=== PATIENT | male | born 1955 | race Caucasian/White ===

== ENCOUNTER → 2017-07-04 | Outpatient (CLI) | payer OTHER | LOC: FIMAGING 07:17 | PROVIDERS: ATTEND Radiology Diagnostic Radiology | DX: L97.919 Non-pressure chronic ulcer of unspecified part of right lower leg with unspecified severity (principal); L97.929 Non-pressure chronic ulcer of unspecified part of left lower leg with unspecified severity ==

== ENCOUNTER → 2017-07-15 | Outpatient (CLI) | payer OTHER ==
[~2017-07-15] MED LIST: IOPAMIDOL (ISOVUE 370) 100 ML BTL IV ONE
== END ==
LOC: CIMAGING 09:04
PROVIDERS: ATTEND Radiology Diagnostic Radiology
DX: I71.4 Abdominal aortic aneurysm, without rupture (principal); I25.10 Atherosclerotic heart disease of native coronary artery without angina pectoris; I77.1 Stricture of artery; K57.32 Diverticulitis of large intestine without perforation or abscess without bleeding
CPT/HCPCS: Q9967

== ENCOUNTER → 2017-07-22 | Day surgery (SDC) | payer OTHER ==
[~2017-07-22] MED LIST changes: +CHLOROPROCAINE IV ONE; +EPINEPHRINE IV ONE; -IOPAMIDOL (ISOVUE 370) 100 ML BTL IV ONE; +SODIUM TETRADECYL SULFATE 3% 2 ML VIAL IV ONE
== END | disposition home or self-care (01) ==
LOC: FIMAGING 08:05
PROVIDERS: ATTEND Radiology Diagnostic Radiology
PROC: 3E033TZ Introduction of Destructive Agent into Peripheral Vein, Percutaneous Approach (ICD-10-PCS; principal; 2017-07-22)
PROC: 065P3ZZ Destruction of Right Saphenous Vein, Percutaneous Approach (ICD-10-PCS; principal; 2017-07-22)
DX: I70.211 Atherosclerosis of native arteries of extremities with intermittent claudication, right leg (principal); I83.891 Varicose veins of right lower extremity with other complications
CPT/HCPCS: 36471; 36478; C1769; J0171; J2400

== ENCOUNTER → 2018-08-29 | Outpatient (CLI) | payer OTHER | LOC: GIMAGING 14:00 → EDSTATUS 16:07 | PROVIDERS: ATTEND Family Medicine | DX: S33.6XXA Sprain of sacroiliac joint, initial encounter (principal); M53.3 Sacrococcygeal disorders, not elsewhere classified; E66.9 Obesity, unspecified | CPT/HCPCS: 72220-PO ==

== ENCOUNTER 2018-09-05 11:57 | Day surgery (SDC) | payer OTHER ==
--- NOTE | 2018-09-04 14:05 | GHP ---
DATE OF SURGERY: 09/05/2018 CHIEF COMPLAINT: Right posterior heel pain. HISTORY OF PRESENT ILLNESS: Patient is a 63-year-old with history of progressive right posterior leticia l pain. He has been having difficulty with walking. His pain has been worsening over time. MEDICATIONS: Include amlodipine, aspirin, atorvastatin, clobesol, dexamethasone, Farxiga, furosemide , Humulin R, hydroxychloroquine, losartan, metoprolol, pantoprazole. ALLERGIES: He lists allergy to lidocaine. PAST MEDICAL HISTORY: Positive for arthritis, diabetes, elevated cholesterol, sleep apnea. SOCIAL HISTORY: Positive for previous smoking of 2 packs per day. FAMILY HISTORY: Noncontributory. PHYSICAL EXAMINATION: GENERAL: The patient utilizes oxygen. He is in otherwise no acute distress. He is alert and oriented x3. HEENT: Head normocephalic. Pupils equal, round, and reactive to ligh t. Extraocular eye movements intact. CHEST: Mild wheezing to auscultation. HEART: Regular rate a nd rhythm. ABDOMEN: Soft, nontender, nondistended. No organomegaly. GENITALIA, RECTAL AND BREAST: Deferred. EXTREMITIES: Exam reveals tenderness along the posterior aspect of his heel with thickening of his d istal Achilles on the right. ASSESSMENT: 1. Right Achilles tendinosis. 2. Right calcaneal exostosis. PLAN: The patient is scheduled to undergo Achilles debridement, calcaneal exostectomy and possible F HL transfer. /[id number]/MODL
[2018-09-05] MEDS ORDERED: LR 1,000 ML IV ONE (12:32)
[2018-09-05] MEDS ORDERED: BUPIVACAINE 0.5% 30 ML SDV ONE (12:34)
[2018-09-05] MEDS ORDERED: ceFAZolin 2 GM/DEXTROSE 100 ML IV ONE (13:33)
[2018-09-05] MEDS ORDERED: MIDAZOLAM 2 MG/2 ML VIAL IVP ONE (13:54)
--- NOTE | 2018-09-05 13:56 | PDANEPAE ---
ANE Past Medical History - Cardiovascular History Hx Hypertension: Yes Hx Arrhythmias: Yes Hx Chest Pain: No Hx Coronary Artery / Peripheral Vascular Disease: No Hx CHF / Valvular Disease: No Hx Palpitations: Yes Cardiovascular History Comment: PAF. RBBB. dyslipidemia. Followed by [facility] - Pulmonary History Hx COPD: No Hx Asthma/Reactive Airway Disease: No Hx Recent Upper Respiratory Infection: No Hx Oxygen in Use at Home: Yes O2 in Use at Home (L/minute): 2l cont Hx Sleep Apnea: Yes Sleep Apnea Screening Result - Last Documented: Positive Pulmonary History Comment: hx of PNA last case was a year ago. hypoxia - Neurologic History Hx Cerebrovascular Accident: No Hx Seizures: No Hx Dementia: No Neurologic History Comment: peripheral neuropathy. essential tremor - Endocrine History Hx Diabetes: Yes Obesity: severe Endocrine History Comment: type 2. diabetic retinopathy - Renal History Hx Renal Disorders: No - Liver History Hx Hepatic Disorders: No - Neurological & Psychiatric Hx Hx Neurological and Psychiatric Disorders: No - Cancer History Hx Cancer: No - Congenital Disorder History Hx Congenital Disorders: No - GI History GERD: moderate Hx Gastrointestinal Disorders: Yes Gastrointestinal History Comment: GERD. gastroparesis - Other Health History Other Health History: wears glasses. gout. dry skin - Chronic Pain History Chronic Pain: Yes (right foot, coccyx pain) - Surgical History Prior Surgeries: biopsy of mouth a few months ago. appy as young child. right foot surgeryd/t shattering bone 20 yrs ago. right TKA ANE Review of Systems Review of Systems: - Exercise capacity METS (RN): 3 METS ANE Patient History - Allergies Allergies/Adverse Reactions: lidocaine Allergy (Verified 09/04/18 16:51) Heart does weird things. palpatations - Home Medications Home medications: home medication list seen and reviewed Home Medications: Advil TID PRN 07/20/17 [Last Taken 09/05/18 08:30] Amlodipine Besylate 07/20/17 [Last Taken 09/05/18 08:30] Asprin 07/20/17 [Last Taken 09/05/18 08:30] Atorvastatin Calcium 07/20/17 [Last Taken 09/05/18 08:30] Farxiga 07/20/17 [Last Taken 09/05/18 08:30] Lasix 80 MG (*) 07/20/17 [Last Taken 09/02/18] Lorsartin/Hctz 07/20/17 [Last Taken 09/04/18] Metoprolol Tartrate BID 07/20/17 [Last Taken 09/05/18 08:30] Pantoprazole Sodium 07/20/17 [Last Taken 09/05/18 08:30] DEXAMETHASONE 09/04/18 [Last Taken 09/04/18] HUMULIN R PRN 09/04/18 [Last Taken 09/05/18 08:30] Herbals/Supplements -Info Only 09/04/18 [Last Taken 09/04/18] Hydroxychloroquine Sulfate 09/04/18 [Last Taken 09/05/18 08:30] Insulin Pump, Patient Own 09/04/18 [Last Taken 09/05/18 08:30] LYRICA BID 09/04/18 [Last Taken 09/04/18] Senna-S Tablet 09/05/18 [Last Taken 09/05/18 08:30] - NPO status NPO Status: no food or drink >8 hours NPO Since - Liquids (Date): 09/05/18 NPO Since - Liquids (Time): 11:15 NPO Since - Solids (Date): 09/04/18 NPO Since - Solids (Time): 22:00 - Anes Hx Anes Hx: no prior problems - Smoking Hx Smoking Status: Former smoker - Alcohol Use Alcohol Use: Other (Recently cut back; was drinking 12 beers daily) - Family Anes Hx Family Hx Anesthesia Complications: none ANE Labs/Vital Signs - Labs Result Diagrams: 09/05/18 13:15 - Vital Signs Blood Pressure: 158/92 Heart Rate: 66 Respiratory Rate: 14 O2 Sat (%): 96 Height: 180.34 cm Weight: 125.645 kg ANE Physical Exam - Airway Neck exam: FROM Mallampati Score: Class 3 Mouth exam: normal dental/mouth exam - Pulmonary Pulmonary: no respiratory distress, no rales or rhonchi, clear to auscultation - Cardiovascular Cardiovascular: regular rate and rhythym, no murmur, rub, or gallop - ASA Status ASA Status: III ANE Anesthesia Plan Anesthesia Plan: general endotracheal anesthesia Regional Anesthesia: single shot NB, adductor canal FNB, popliteal SNB
--- NOTE | 2018-09-05 13:59 | PDHPUP ---
History & Physical Update H&P update statement: This history and physical update is based on an assessment of the patient which was completed after admission or registration (within 24 hours), but prior to the surgery/procedure. H&P update: H&P reviewed & patient examined
[2018-09-05] MEDS ORDERED: BUPIVACAINE/EPI 0.25% 30 ML SDV ONE (14:02)
[2018-09-05] MEDS ORDERED: BUPIVACAINE 0.25% 10 ML SDV ONE (14:03)
[2018-09-05] MEDS ORDERED: fentaNYL 100 MCG/2 ML INJ ONE (14:04)
[2018-09-05] MEDS ORDERED: PROPOFOL 200 MG/20 ML VIAL ONE (14:04)
[2018-09-05] MEDS ORDERED: SUCCINYLCHOLINE CHLORIDE 200 MG/10 ML SYR IVP ONE (14:05)
[2018-09-05] MEDS ORDERED: ONDANSETRON 4 MG/2 ML VIAL ONE (14:05)
[2018-09-05] MEDS ORDERED: LIDOCAINE 2% 5 ML SDV ONE (14:07)
[2018-09-05] MEDS ORDERED: PROMETHAZINE HCL 25 MG/ML INJ IVP PRN (15:23)
[2018-09-05] MEDS ORDERED: HYDROCODONE/APAP 5/325 TAB PO PRN (15:23)
[2018-09-05] MEDS ORDERED: ACETAMINOPHEN 500 MG TAB PO PRN (15:23)
[2018-09-05] MEDS ORDERED: oxyCODONE IR 5 MG TAB PO PRN (15:23)
[2018-09-05] MEDS ORDERED: fentaNYL 100 MCG/2 ML INJ IVP PRN (15:23)
[2018-09-05] MEDS ORDERED: NALOXONE HCL 0.4 MG/ML INJ IVP PRN (15:23)
[2018-09-05] MEDS ORDERED: ONDANSETRON 4 MG/2 ML VIAL IVP PRN (15:23)
[2018-09-05] MEDS ORDERED: LR 500 ML IV PRN (15:23)
--- NOTE | 2018-09-05 15:41 | POSTOPPROG ---
Post Op Note Date of Operation: 09/05/18 Surgeon: Chevy Salazar Anesthesia: GET(General Endotracheal) Pre-op Diagnosis: R achilles tendinosis, calc. exostosis Post-op Diagnosis: same Procedure: R calc exostectomy, achilles debridement, FHL transfer Inf/Abcess present in the surg proc area at time of surgery?: No EBL: Minimal
--- NOTE | 2018-09-05 15:53 | POSTANESTH ---
Post Anesthetic Evaluation Cardiovascular Status: Normal, Stable, Similar to Pre-Op Cond Respiratory Status: Similar to Pre-op Cond. Level of Consciousness/Mental Status: Can Participate in Eval, Alert and Oriented Pain Control: Adequate, Prn Tx Ordered Nausea/Vomiting Control: Adequate, Prn Tx Ordered Complications Possibly Related to Anesthesia: None Noted
[2018-09-05 17:28] VITALS: BP 155/68
--- NOTE | 2018-09-07 06:57 | GOP ---
DATE OF OPERATION: 09/05/2018 SURGEON: Chevy Salazar MD ANESTHESIA: General plus popliteal and saphenous nerve blocks performed by the anesthesiologist at m y request for postoperative pain management. PREOPERATIVE DIAGNOSIS: 1. Right calcaneal exostosis. 2. Right Achilles tendinosis. POSTOPERATIVE DIAGNOSIS: 1. Right calcaneal exostosis. 2. Right Achilles tendinosis. PROCEDURE PERFORMED: 1. Right calcaneal exostectomy. 2. Right Achilles debridement. 3. Right flexor hallucis longus transfer. FINDINGS: ESTIMATED BLOOD LOSS: Minimal. INDICATIONS: Patient is a 63-year-old with history of progressive right posterior heel pain. Clinic ally and radiographically, he was noted to have posterior calcaneal exostosis, Mayo deformity, and degenerative changes within his Achilles distally. Based on his persistence of symptoms, refractory to nonoperative treatment, he is interested in pursuing operative treatment. From an operative shadi dpoint, excision of his posterior calcification, Mayo deformity, Achilles debridement and probable FHL transfer was recommended. The patient acknowledged he understood the potential risks of the ope ration including, but not limited to bleeding, infection, neurovascular damage, loss of limb or limb function, rupture of his Achilles at its attachment point, pain or functional limitations despite ope rative treatment, and anesthetic risks. He acknowledged he understood the potential risks, planned p rocedure, and postoperative plan well, and had all questions answered prior to surgery. He has conse nted to the operative procedure. DESCRIPTION OF PROCEDURE: Patient was brought to the operating after IV antibiotics were administere d. He was placed in a supine position. Popliteal and saphenous nerve blocks were performed by the a nesthesiologist at my request for postoperative pain management. General anesthetic was administered . A tourniquet was placed on his right calf, bump underneath the left hip and shoulder, and the righ t lower leg was prepped and draped in standard sterile fashion. After marking the incision, Emory wrap exsanguination, tourniquet was inflated to 250. A medial approach to the distal Achilles was utiliz ed for exposure. Skin and subcutaneous tissue were sharply incised. Sharp dissection was carried do wn to the medial aspect of the Achilles. Significant adherence of the peritenon was noted. The tend on was noted to be in significant degenerative condition. The posterior aspect of the Achilles inser tion was longitudinally split. The incised portions were reflected medially and laterally, trying to leave as much of the tendon intact as possible. Utilizing a chisel and rongeur, the posterior bony prominence was removed. The degenerative portions of the Achilles were sharply debrided. Based on t he significant amount of tendon involved, it was felt that supplementation with flexor hallucis longu s would be necessary. Attention was then directed toward the Mayo incision. Utilizing a saw, the bony prominence on the superior calcaneal tuberosity was cut and removed with a rongeur. FHL was then harvested. Through the same incision, dissection was carried anteriorly opening the jose p posterior compartment fascia. The flexor hallucis longus tendon and muscle were identified. It wa s retracted proximally and transected through the incision. It was not felt that further length of t he tendon through a separate incision would be necessary. Reattachment of the Achilles and FHL was t hen performed. An all-suture suture anchor (Helm and Nephew) was placed to the posterior aspect of the calcaneal tuberosity. The suture ends were secured through the reflected portion of the Achilles . A 4.5 mm drill hole was then placed in the superior tuberosity near the Achilles insertion. This hole was widened with a curette. Through this, additional suture anchor was placed and secured into the flexor hallucis longus tendon. The FHL was further secured into the Achilles with 0 PDS suture. The ankle was brought past neutral dorsiflexion. The repair was felt to be solid. Attention was directed toward closure. The deep tissue was closed with 2-0 Vicryl suture in interrup rolando fashion. The tourniquet was deflated with no untoward bleeding seen. Subcutaneous tissue was cl osed with 3-0 Vicryl suture in interrupted fashion. Skin closed with 4-0 nylon interrupted sutures. The wounds were dressed with sterile Adaptic, 4 x 4 and Webril and the patient was placed into a fra cture boot with a heel wedge. The patient tolerated the procedure well and was taken to the recovery room, extubated in stable condition postoperatively. All sponge, needle, and instrument counts were reported as being correct. DRAINS: None. COMPLICATIONS: None. PLAN: The patient will be discharged home weightbearing as tolerated in his fracture boot. He was i nstructed that he should be wearing his boot essentially at all times. /[id number]/MODL
== END 2018-09-05 17:29 | disposition home or self-care (01) ==
LOC: FSGY 11:57
PROVIDERS: ATTEND Orthopaedic Surgery Foot and Ankle Surgery
DX: M76.61 Achilles tendinitis, right leg (principal); M77.31 Calcaneal spur, right foot; E11.43 Type 2 diabetes mellitus with diabetic autonomic (poly)neuropathy; E11.3599 Type 2 diabetes mellitus with proliferative diabetic retinopathy without macular edema, unspecified eye; G47.33 Obstructive sleep apnea (adult) (pediatric); K21.9 Gastro-esophageal reflux disease without esophagitis; I25.10 Atherosclerotic heart disease of native coronary artery without angina pectoris; I48.0 Paroxysmal atrial fibrillation; M10.9 Gout, unspecified; K31.84 Gastroparesis; I45.10 Unspecified right bundle-branch block; E78.5 Hyperlipidemia, unspecified; I10 Essential (primary) hypertension; M53.3 Sacrococcygeal disorders, not elsewhere classified; Z79.82 Long term (current) use of aspirin; Z87.891 Personal history of nicotine dependence
CPT/HCPCS: C1713; J0330; J0690; J2250; J2405; J2704; J3010

== ENCOUNTER → 2019-01-04 | Outpatient (CLI) | payer OTHER | LOC: FIMAGING 11:09 | PROVIDERS: ATTEND Family Medicine | DX: M54.6 Pain in thoracic spine (principal); R07.81 Pleurodynia; R91.1 Solitary pulmonary nodule ==

== ENCOUNTER 2019-02-15 10:04 | Day surgery (SDC) | payer OTHER ==
[2019-02-15] MEDS ORDERED: fentaNYL 100 MCG/2 ML INJ IVP PRN (10:10)
[2019-02-15] MEDS ORDERED: NALOXONE HCL 0.4 MG/ML INJ IVP PRN (10:10)
[2019-02-15] MEDS ORDERED: MIDAZOLAM 2 MG/2 ML VIAL IVP PRN (10:10)
[2019-02-15] MEDS ORDERED: FLUMAZENIL 0.5 MG/5 ML MDV IVP PRN (10:10)
[2019-02-15] MEDS ORDERED: NS 1,000 ML IV SCH (10:15)
[2019-02-15] MEDS ORDERED: NALOXONE HCL 0.4 MG/ML INJ ONE (11:04)
[2019-02-15] MEDS ORDERED: MIDAZOLAM 2 MG/2 ML VIAL ONE (11:04)
[2019-02-15] MEDS ORDERED: FLUMAZENIL 0.5 MG/5 ML MDV IVP ONE (11:04)
[2019-02-15] MEDS ORDERED: fentaNYL 100 MCG/2 ML INJ ONE (11:04)
[2019-02-15] MEDS ORDERED: LIDOCAINE 1% 5 ML SDV ONE (11:19)
--- NOTE | 2019-02-15 11:36 | PDRADPRE ---
Radiology History & Physical Indication for procedure: cancer (RUL pulmonary nodule - CT guided biopsy) Home medications: Advil 600 mg PO DAILY PRN 07/20/17 [Last Taken 09/05/18 08:30] Amlodipine Besylate 5 mg PO DAILY 07/20/17 [Last Taken 09/05/18 08:30] Asprin 325 mg PO DAILY 07/20/17 [Last Taken 09/05/18 08:30] Atorvastatin Calcium 80 mg PO DAILY 07/20/17 [Last Taken 09/05/18 08:30] Farxiga 10 mg PO DAILY 07/20/17 [Last Taken 09/05/18 08:30] Lasix 80 MG (*) 40 mg PO DAILY 07/20/17 [Last Taken 09/02/18] Lorsartin/Hctz 1 tab PO DAILY 07/20/17 [Last Taken 09/04/18] Metoprolol Tartrate 25 mg PO BID 07/20/17 [Last Taken 09/05/18 08:30] Pantoprazole Sodium 40 mg PO DAILY 07/20/17 [Last Taken 09/05/18 08:30] DEXAMETHASONE 10 ml PO BID PRN 09/04/18 [Last Taken 09/04/18] HUMULIN R PRN 09/04/18 [Last Taken 09/05/18 08:30] Herbals/Supplements -Info Only 09/04/18 [Last Taken 09/04/18] Hydroxychloroquine Sulfate 200 mg PO DAILY 09/04/18 [Last Taken 09/05/18 08:30] Insulin Pump, Patient Own 09/04/18 [Last Taken 09/05/18 08:30] LYRICA 100 mg PO TID 09/04/18 [Last Taken 09/04/18] Senna-S Tablet 2 tab PO BID 09/05/18 [Last Taken 09/05/18 08:30] Advil 800 mg PO DAILY AT 4PM 02/13/19 [Last Taken Unknown] CALCIUM 600 + VIT D TABLET 1 tab PO BID 02/13/19 [Last Taken Unknown] Ibuprofen [Advil] 800 mg PO DAILY AT 9PM 02/13/19 [Last Taken Unknown] Magnesium Oxide [Magnesium] 1 tab PO DAILY 02/13/19 [Last Taken Unknown] Multivitamin 1 tab PO DAILY 02/13/19 [Last Taken Unknown] Tylenol ES 500 mg (*) 2 tab PO BID PRN 02/13/19 [Last Taken Unknown] Allergies/Adverse Reactions: lidocaine Allergy (Verified 09/04/18 16:51) Heart does weird things. palpatations Mental status: A&Ox3 Heart exam: regular rate and rhythm Lungs exam: clear to auscultation Mallampati Score: Class 3
--- NOTE | 2019-02-15 11:36 | PDPROPOC ---
Sedation Plan of Care Sedation Plan of Care: vital signs stable, mental status noted, patient educated of risks, benefits, alternatives, patient can tolerate sedation ASA Classification: ASA 2 Planned drugs: fentanyl, midazolam Mallampati Score: Class 3 Mallampati Reference Image: Patient passed 3-3-2 rule?: Yes
[2019-02-15 12:00] LABS: INR 1.03 (0.83-1.16); PROTIME(PATIENT) 13.1 SEC (12.0-15.0)
--- NOTE | 2019-02-15 12:55 | PDRADPN ---
Radiology Procedure Note Date of Procedure: 02/15/19 Radiologist: Rm Waller Anesthesia: IV Sedation Pre-op Diagnosis: RUL pulmonary nodule Post-op Diagnosis: RUL pulmonary nodule Indication: RUL pulmonary nodule Procedure: CT guided lung nodule biopsy Finding(s): 18 ga core specimens sent in formalin. No PTX. Inf/Abcess present in the surg proc area at time of surgery?: No
[2019-02-15 16:06] VITALS: BP 143/70
== END 2019-02-15 16:35 | disposition home or self-care (01) ==
LOC: FIMAGING 10:04
PROVIDERS: ATTEND Internal Medicine Hematology & Oncology
PROC: 0BBC3ZX Excision of Right Upper Lung Lobe, Percutaneous Approach, Diagnostic (ICD-10-PCS; principal; 2019-02-15 13:05)
DX: Q85.9 Phakomatosis, unspecified (principal)
CPT/HCPCS: J2250; J2310; J3010